=== PATIENT | male | born 1955 | race Caucasian/White ===

== ENCOUNTER 2017-03-12 08:14 | Day surgery (SDC) | payer BC, OTHER ==
[2017-03-12] MEDS ORDERED: Lactated Ringers 1,000 ML IV SCH (09:15)
[2017-03-12] MEDS ORDERED: Atropine 0.4 MG/ML SDV IVPUSH ONE (11:00)
[2017-03-12] MEDS ORDERED: Midazolam 1 MG/ML 2 ML SDV IV ONE (11:00)
[2017-03-12] MEDS ORDERED: Propofol 200 MG/20 ML SDV IV ONE (11:00)
[2017-03-12] MEDS ORDERED: Glycopyrrolate 0.2 MG/ML 2 ML SDV IV ONE (11:00)
--- NOTE | 2017-03-12 11:34 | PCM.OPNOTE ---
- General Post-Op/Procedure Note Date of Surgery/Procedure: 03/12/17 Operative Procedure(s): c scope Findings: normal colon Pre Op Diagnosis: personal hx of colon polyps Post-Op Diagnosis: nl colon Anesthesia Technique: SAMARA Primary Surgeon: Carlos Davenport Anesthesia Provider: Neelam Millard Pathology: none Complications: None Condition: Good Free Text/Narrative:: see dictation
[2017-03-12 13:49] VITALS: BP 109/72
--- NOTE | 2017-03-12 17:02 | OR ---
DATE OF OPERATION: 03/12/2017 SURGEON: Carlos Davenport MD PROCEDURE PERFORMED: Colonoscopy. PREOPERATIVE DIAGNOSIS: Personal history of colon polyps. POSTOPERATIVE DIAGNOSIS: Normal colon. INDICATIONS FOR PROCEDURE: This is a 62-year-old white male with personal history of colon polyps. He presents now for followup colonoscopy. He was offered and accepted same. DESCRIPTION OF OPERATION: After an excellent IV sedation was administered, digital rectal exam was performed. No marked abnormality was noted. Flexible colonoscope was inserted and advanced without difficulty to the cecum. The prep was excellent. The following findings were noted: Ascending colon, unremarkable. Transverse colon, unremarkable. Descending colon, unremarkable. Sigmoid and rectum unremarkable. Colon was deflated, scope was removed. The patient tolerated the procedure well and was taken to recovery in good condition. /[id number] SARAH/JORI
== END 2017-03-12 13:48 | disposition home or self-care (01) ==
LOC: FB.SDS 08:14
PROVIDERS: ATTEND Surgery
DX: Z12.11 Encounter for screening for malignant neoplasm of colon (principal); E78.2 Mixed hyperlipidemia; F32.9 Major depressive disorder, single episode, unspecified; F41.9 Anxiety disorder, unspecified; Z79.899 Other long term (current) drug therapy; Z79.82 Long term (current) use of aspirin; Z98.890 Other specified postprocedural states
CPT/HCPCS: 45378; J0461; J2250; J2704; J7120; J3490